=== PATIENT | female | born 1950 | race Caucasian/White ===

== ENCOUNTER 2018-11-20 20:26 | Emergency (ER) | payer MEDICARE, OTHER ==
[~2018-11-20] VITALS: Ht 160 cm; Wt 62.5 kg
[~2018-11-20 20:26] MED LIST: CEPH-443 PO; IBUP-1542 PO; MECL12.574 PO
[2018-11-20 20:42] VITALS: Ht 160 cm; Wt 62.5 kg
[2018-11-20] MEDS ORDERED: ACETAMINOPHEN 325 MG TAB PO ONE (23:00)
--- NOTE | 2018-11-20 23:41 | ERD ---
ER Documentation Chief Complaint Chief Complaint slipped/fell backwards, c/o pain/swelling back of head. no ko HPI This patient is an otherwise healthy 68-year-old female brought in by her granddaughter who is assisting with translation from Telugu to Nepali with complaints of hematoma to the occipital region of the head after fall just prior to arrival. The patient was rolling her trash can out when she fell backwards onto the back of her head. She also reports neck pain. Pain is rated 6/10 in severity. No medication was taken for relief of symptoms. Patient also had mild dizziness. She denies any vomiting, loss of consciousness, blood thinner use, or other symptoms at this time. ROS All systems reviewed and are negative except as per history of present illness. Medications Home Meds Active Scripts Ibuprofen* (Motrin*) 600 Mg Tab, 600 MG PO Q6, #20 TAB Prov:CLOVER STOUT PA-C 12/13/15 Allergies Allergies: Coded Allergies: No Known Allergy (Unverified , 12/13/15) PMhx/Soc History of Surgery: Yes (Hysterectomy 2002) Anesthesia Reaction: No Hx Neurological Disorder: No Hx Respiratory Disorders: No Hx Cardiac Disorders: No Hx Psychiatric Problems: No Hx Miscellaneous Medical Probl: No Hx Alcohol Use: No Hx Substance Use: No Hx Tobacco Use: No Smoking Status: Never smoker FmHx Family History: No diabetes Physical Exam Vitals Vital Signs Date Temp Pulse Resp B/P (MAP) Pulse Ox O2 O2 Flow FiO2 Time Delivery Rate 11/21/18 98.5 70 20 179/82 99 01:42 (114) 11/20/18 98.5 69 20 172/78 99 20:42 (109) Physical Exam Const: No acute distress Head: There is an approximate 2 cm x 2 cm soft hematoma with overlying abrasion to the right occipital region of the head. Eyes: Normal Conjunctiva ENT: Normal External Ears, Nose and Mouth. Neck: Full range of motion. No meningismus. Resp: Clear to auscultation bilaterally Cardio: Regular rate and rhythm, no murmurs Skin: No petechiae or rashes Back: No midline or flank tenderness Ext: No cyanosis, or edema Neur: Awake and alert. No neurological deficits. Psych: Normal Mood and Affect Results 24 hrs Current Medications Medications Dose Sig/Aleks Start Time Status Last (Trade) Ordered Route PRN Stop Time Admin Dose Reason Admin 650 mg ONCE ONCE 7/22/19 DC 11/20/18 Acetaminophen PO 23:00 23:04 (Tylenol 11/20/18 23:01 Tab) [place] [address] Radiology Main Line: [phone] DIAGNOSTIC IMAGING REPORT Patient: WOJCIECH GALARZA : 1950 Age: 68 Sex: F MR #: [id number] DOS: 11/20/18 0000 Ordering MD: JESSICA FRANCISCO PA-C Location: [facility] Room/Bed: PROCEDURE: CT brain without contrast CLINICAL INDICATION: Headaches following head injury TECHNIQUE: A CT of the brain was performed utilizing axial sections from the skull base through the vertex without contrast. Sagittal and coronal images were also reformatted. DICOM images are available. One or more of the following dose reduction techniques were used: Automated exposure control, adjustment of the mA and/or kV according to patient size, use of iterative reconstruction technique. The exam CTDIvol = 39.42 mGy and DLP = 634.23 mGy-cm. COMPARISON: None available FINDINGS: No acute intracranial hemorrhage is identified. There is no mass effect or midline shift. No extra-axial fluid collection is seen. The ventricles and sulci are within normal limits for size and configuration for the patient's provided age of 68 years. The density of the brain is within normal limits. Breen-white differentiation is preserved. There is no posterior fossa mass effect, the fourth ventricle is midline. Incidental partially empty sella turcica is noted The osseous structures are unremarkable. The mastoid air cells and visualized paranasal sinuses are clear. RPTAT:HJJR IMPRESSION: Unremarkable noncontrast CT of the brain for the patient's age without evidence of acute post traumatic abnormality. Physician Amrita Date Time Electronically viewed and signed by Physician Amrita on 11/21/2018 00:47 JR/ CC: JESSICA FRANCISCO PA-C [id number] [place] [address] Radiology Main Line: [phone] DIAGNOSTIC IMAGING REPORT Patient: WOJCIECH GALARZA : 1950 Age: 68 Sex: F MR #: [id number] DOS: 11/20/18 0000 Ordering MD: JESSICA FRANCISCO PA-C Location: [facility] Room/Bed: PROCEDURE: CT cervical spine without contrast. CLINICAL INDICATION: Injury. Post traumatic neck pain following a fall TECHNIQUE: CT of the cervical spine without contrast was performed. Axial images were obtained through the cervical spine and reformatted at 1.25 mm slice thickness. Coronal and sagittal images were reformatted. DICOM images are a vailable. One or more of the following dose reduction techniques were used: Automated exposure control, adjustment of the mA and/or kV according to patient size, use of iterative reconstruction technique. Exam CTDIvol = 22.19 mGy and DLP = 485.27 mGy-cm. COMPARISON: None available. FINDINGS: Vertebral bodies: Stature is preserved at every level without evidence of compression deformity. The lordosis is straightened. There is normal mineralization and trabeculation. The predental space is mildly narrowed. Moderate anterior enthesopathy is most pronounced from C4-C7. The C1 ring is intact. Both occipital condyles are normal in position. Central canal and cervical spinal cord: No abnormal density within the spinal cord is evident and no intraspinal masses are delineated. C2-3: The disk is within normal limits. The facet joints are normal. The uncovertebral joints and foramina are unremarkable.No posterior element fracture is identified. C3-4: The disk is within normal limits. Mild anterior enthesopathy is present. The facet joints are normal. The uncovertebral joints and foramina are unremarkable.No posterior element fracture is identified C4-5: Mild disc space narrowing is present with anterior enthesopathy. A small osteophyte and disc complex is present without more than mild central canal stenosis. The facet joints are normal. Uncovertebral hypertrophy causes severe left and moderate right foraminal stenosis .No posterior element fracture is identified C5-6: Moderate degenerative disc narrowing to a small osteophyte and disc complex causing moderate acquired central canal stenosis. The facet joints are normal. Uncovertebral hypertrophy contributes to severe bilateral foraminal stenosis greater on the left .No posterior element fracture is identified C6-7: Mild degenerative disc narrowing with a small osteophyte and disc complex contributing to mild central canal stenosis. The facet joints are normal. Uncovertebral hypertrophy contributes to severe right and moderate left foraminal narrowing .No posterior element fracture is identified C7-T1: The disk is within normal limits. Severe bilateral facet arthropathy is present with trace anterolisthesis. The uncovertebral joints and foramina are unremarkable.No posterior element fracture is identified Non spine related findings: Atherosclerotic calcification of the carotid bifurcations is noted RPTAT:HJJR IMPRESSION: 1. There is no evidence of cervical spine fracture. 2. The lordosis is mildly straightened which may be from positioning but cannot exclude muscle spasm. 3. Degenerative disc disease with osteophyte and disc complex causing mild central stenosis at C4-5 and C6-7 and moderate central stenosis at C5-6. 4. Multilevel uncovertebral hypertrophy contributing to foraminal stenosis greatest on the left at C4-5, left side greater than right at C5-6 and on the right side greater than left at C6-7. Physician Amrita Date Time Electronically viewed and signed by Physician Amrita on 11/21/2018 00:52 JR/ CC: JESSICA FRANCISCO PA-C [id number] Procedures/MDM 68-year-old female presents the emergency department for head injury. Her age and hematoma noted to the occipital region of the head, imaging was obtained. Head CT revealed no significant acute abnormalities. CT cervical spine revealed no significant acute abnormalities. Patient is stable for discharge and further outpatient management with prescriptions. Patient's cranial symptoms have stabilized while in the department and are appropriate for outpatient care and work up. Exam and w/u not consistent w/ intracranial bleeding or skull fracture. No evidence of life-threatening pathology at time of discharge. Pt/family in agreement with discharge plan/diagnosis. Pt/family advised to return immediately with any new or worsening symptoms. Follow-up with primary care physician within the next 1-2 days. Patient's blood pressure was elevated (>120/80) but appears stable without evidence of hypertension emergency or urgency. The patient is to follow-up and pursue outpatient monitoring and therapy with their primary care physician within 1 week and return immediately if they have any new, worsening, or concerning symptoms. Departure Diagnosis: Primary Impression: Acute head injury without loss of consciousness Encounter type: initial encounter Qualified Codes: S09.90XA - Unspecified injury of head, initial encounter Condition: Fair Additional Instructions: Muchas fauzia por [facility] para springer servicio. Esperamos que en springer visita a la obdulia de emergencia springer problema medico haya sido solucionado y que se sienta mucho mejor. Para estar seguros que springer mejoria sigue en proceso, le pedimos el favor de hacer leticia marely de seguimiento medico con springer doctor primario en los proximos 2-4 tafoya. Lleve con usted estos documentos y las medicinas recetadas. Si alvarez sintomas empeoran, NO SE ESPERE, por favor regrese a obdulia de emergencia INMEDIATAMENTE. En sameer que usted no tenga un mdico de atencin primaria: Llame al mdico o clnica comunitaria de referencia que aparece abajo nikita las horas de consultorio para hacer leticia marely para que le vean. CLINICAS: [facility] [phone] [facility] [phone] [facility] [phone] [facility] [phone] [facility] [phone] [address] [facility]. [phone] JESSICA PARRA PA-C Nov 20, 2018 23:41
[2018-11-21 01:42] VITALS: BP 179/82; PULSE 70; RESP 20
== END 2018-11-21 01:42 | disposition home or self-care (01) ==
LOC: FTE 20:26
DX: S00.03XA Contusion of scalp, initial encounter (principal); W01.0XXA Fall on same level from slipping, tripping and stumbling without subsequent striking against object, initial encounter; Y92.9 Unspecified place or not applicable
CPT/HCPCS: 70450; 72125